=== PATIENT | male | born 1960 | race Caucasian/White ===

== ENCOUNTER 2024-05-14 20:22 | Emergency (ER) | payer MEDICAID ==
[2024-05-14 20:38] VITALS: O2SAT 98
--- NOTE | 2024-05-14 21:00 | ED Physician Documentation ---
PD HPI HEADACHE - Stated complaint Stated Complaint: BLURRED VISION - Chief complaint Chief Complaint: Heent - History obtained from History obtained from: Patient - Additional information Additional information: 63-year-old gentleman with recent diagnosis of prostate cancer status post recent radiation for same. He also has a history of some bowel surgeries and a stable carotid aneurysm. He presents today with 2 weeks of odd headaches. He says it feels like someone is taking a "very sharp knife and then will cut him from the right posterior scalp to the front towards the eye and then sometimes it will happen on the left as well albeit when it happens on the left it is not as bad. He feels like he has blurry vision with this and feels like he is hung over but has not been drinking. He denies jaw claudication. He says ibuprofen has not been very helpful for the headaches but really does not need anything for the headache now. RN did visual acuity which was 20/20 bilaterally. PD PAST MEDICAL HISTORY - Present Medications Home Medications: Ambulatory Orders Medication Instructions Recorded Confirmed Aspirin Chewable [[place] 81 mg PO DAILY 05/14/24 Aspirin] Atorvastatin Calcium 40 mg PO DAILY 05/14/24 Levothyroxine Sodium 0.05 mcg PO DAILY 05/14/24 - Allergies Allergies/Adverse Reactions: Allergies Allergy/AdvReac Type Severity Reaction Status Date / Time No Known Drug Allergies Allergy Verified 05/14/24 20:36 PD ED PE NORMAL - Vitals Vital signs reviewed: Yes - General General: Alert and oriented X 3, No acute distress - HEENT HEENT: PERRL, EOMI, Other (No temporal tenderness) - Neck Neck: Supple, no meningeal sign, No bony TTP - Cardiac Cardiac: RRR, No murmur - Respiratory Respiratory: No respiratory distress, Clear bilaterally - Abdomen Abdomen: Non tender - Neuro Neuro: Alert and oriented X 3, cooler deliverer 2-12 intact, No motor deficit, No sensory deficit, Normal speech, Other (Normal gait) Eye Opening: Spontaneous Motor: Obeys Commands Verbal: Oriented GCS Score: 15 - Psych Psych: Normal mood, Normal affect Results - Vitals Vitals: Vital Signs - 24 hr 05/14/24 05/14/24 05/14/24 20:25 20:54 22:34 Temperature 36.9 C Heart Rate 79 80 68 Respiratory 16 16 Rate Blood Pressure 161/72 H 138/70 H O2 Saturation 98 98 Oxygen O2 Source Room air - EKG (time done) 2208 EKG releavant findings:: EKG personally interpreted by author of this note. Relevant findings are: Rate: Rate (enter#) (63) Rhythm: NSR (w pacs) [place]: Normal Intervals: Normal ND, RBBB (incomplete) Ischemia: Normal ST segments - Labs Labs: Laboratory Tests 05/14/24 05/14/24 05/14/24 21:08 21:08 21:08 WBC 6.4 RBC 4.22 L Hgb 13.1 L Hct 38.3 L MCV 90.8 MCH 31.0 MCHC 34.2 RDW 12.5 Plt Count 192 MPV 8.8 Neut # (Auto) 4.4 Lymph # (Auto) 1.6 [place] # (Auto) 0.4 Eos # (Auto) 0.0 Baso # (Auto) 0.0 Absolute Nucleated RBC 0.00 Nucleated RBC % 0.0 ESR 8 Sodium 135 Potassium 4.1 Chloride 102 Carbon Dioxide 27 Anion Gap 6.0 BUN 14 Creatinine 0.9 Estimated GFR (MDRD) 85 L Glucose 119 H Calcium 9.7 Total Bilirubin 0.7 AST 30 ALT 55 Alkaline Phosphatase 88 C-Reactive Protein < 0.5 Total Protein 7.1 Albumin 4.6 Globulin 2.5 Albumin/Globulin Ratio 1.8 - Rads (name of study) CT of the head and angiography of the head and neck were unremarkable. Relevant Findings:: Final report received, EMP independent interpretation of test PD Medical Decision Making - ED course ED course: 63yo male with 2ish weeks atypical waxing/waning headache with other odd sx. Has hx cerebral aneurysm but not present on CTA head tonight. Ddx includes temporal arteritis, but ESR/CRP neg. Has PACs on EKG with dizzyness, might be related, but should not cause DAN. Departure - Departure Disposition: 01 Home, Self Care Clinical Impression: Headache Qualifiers: Headache type: unspecified Headache chronicity pattern: acute headache Intractability: not intractable Qualified Code(s): R51.9 - Headache, unspecified Condition: Good Record reviewed to determine appropriate education?: Yes Instructions: ED Cephalgia Unspecified Comments: You were seen today for these very odd symptoms, 1 thing we considered with something called giant cell arteritis given the location of your pain but the screening labs for that (ESR and CRP) were negative. We are also worried about your history of aneurysm, but the radiologist did not see any significant aneurysmal changes or any other changes concerning with your brain tonight. At this point seems unlikely to be anything serious, that said do follow-up with your primary care physician with consideration for follow-up MRI and/or referral to neurology especially if they keep going. Return for new or worsening symptoms. On your EKG, you did have some early beats known as premature atrial contractions. These are generally benign but are associated with atrial fibrillation. Recommend he also follow-up with your doctor with consideration for a heart monitor for more prolonged monitoring to make sure that you are not having other arrhythmias as well. Forms: PCP List Discharge Date/Time: 05/14/24 22:34
[2024-05-14] MEDS ORDERED: iohexoL-300 100 ML VIAL ONE (21:04)
[2024-05-14 21:16] LABS: BASOPHILS % (AUTO) 0.3 %; EOSINOPHILS % (AUTO) 0.3 %; HCT - HEMATOCRIT 38.3 % (42.0-52.0); HGB - HEMOGLOBIN 13.1 g/dL (14.0-18.0); LYMPHOCYTES # (AUTO) 1.6 10^3/uL (1.5-3.5); LYMPHOCYTES % (AUTO) 24.8 %; MEAN CORPUSCULAR HGB CONC 34.2 g/dL (32.0-36.0); MEAN CORPUSCULAR VOLUME 90.8 fL (80.0-94.0); MEAN PLATELET VOLUME 8.8 fL (7.4-11.4); MONOCYTES # (AUTO) 0.4 10^3/uL (0.0-1.0); MONOCYTES % (AUTO) 5.8 %; NEUTROPHILS # (AUTO) 4.4 10^3/uL (1.5-6.6); NEUTROPHILS % (AUTO) 68.5 %; PLT - PLATELET COUNT 192 10^3/uL (130-450); RED BLOOD COUNT 4.22 10^6/uL (4.70-6.10); RED CELL DISTRIBUTION WIDTH 12.5 % (12.0-15.0); WHITE BLOOD COUNT 6.4 x10^3/uL (4.8-10.8)
[2024-05-14 21:26] LABS: ALBUMIN 4.6 g/dL (3.2-5.5); ALBUMIN/GLOBULIN RATIO 1.8 (1.0-2.2); ALKALINE PHOSPHATASE 88 IU/L (42-121); ALT ALANINE AMINOTRANSFERASE 55 IU/L (10-60); AST ASPARTATE AMINOTRANSFERASE 30 IU/L (10-42); BILIRUBIN,TOTAL 0.7 mg/dL (0.2-1.0); BUN - BLOOD UREA NITROGEN 14 mg/dL (6-20); CALCIUM 9.7 mg/dL (8.5-10.3); CARBON DIOXIDE - CO2 27 mmol/L (21-32); CHLORIDE 102 mmol/L (101-111); CREATININE 0.9 mg/dL (0.6-1.3); CRP - C-REACTIVE PROTEIN < 0.5 mg/dL (<0.5); GFR - MDRD 85 (>89); GLUCOSE 119 mg/dL (74-104); POTASSIUM 4.1 mmol/L (3.5-4.5); SODIUM 135 mmol/L (135-145); TOTAL PROTEIN 7.1 g/dL (6.4-8.9)
[2024-05-14] MEDS: iohexoL-300 100 ML VIAL IV ONE (21:42)
--- NOTE | 2024-05-14 21:51 | CT Report ---
PROCEDURE: Head WO INDICATIONS: headache, hx aneurysm TECHNIQUE: Noncontrast 4.5 mm thick angled axial sections acquired from the foramen magnum to the vertex. For r adiation dose reduction, the following was used: automated exposure control, adjustment of mA and/or kV according to patient size. COMPARISON: CTA head and neck 05/14/2024. FINDINGS: Image quality: Excellent. CSF spaces: Basal cisterns are patent. No extra-axial fluid collections. Ventricles are normal in size and shape. Brain: No midline shift. No intracranial masses or hemorrhage. [place]-white matter interface is norm al. Skull and face: Calvarium and visualized facial bones are intact, without suspicious lesions. Sinuses: Visualized sinuses and mastoids are clear. IMPRESSION: No acute intracranial pathology. Reviewed by: Neha Chand MD on 05/14/2024 9:50 PM PDT Approved by: Neha Chand MD on 05/14/2024 9:50 PM PDT Station ID: [id number]
--- NOTE | 2024-05-14 21:53 | CT Report ---
PROCEDURE: Angio Head/Neck INDICATIONS: headache, hx aneurysm TECHNIQUE: After the administration of intravenous contrast, 1 mm thick sections acquired from the aortic arch t hrough the [place]. 3-dimensional uajlmtj-gipuvfels-qngkaxvfsz (MIP) and/or volume renderin g reformats were acquired of the central intracranial vasculature and neck separately. For radiation dose reduction, the following was used: automated exposure control, adjustment of mA and/or kV acco rding to patient size. CONTRAST: Omni 300, 80mls COMPARISON: CT head 05/14/2024 FINDINGS: Image quality: Diagnostic. HEAD CT: See separately dictated CT head report of 05/14/2024. HEAD CT ANGIOGRAPHY: Anterior circulation: Intracranial internal carotid arteries are normal in size and flow. The flow within the paired anterior cerebral arteries is normal and symmetric. The flow within the middle cer ebral arteries is normal and symmetric. The anterior communicating artery is seen. No aneurysms are seen. Posterior circulation: Mild left vertebral artery dominance. Visualized portions of the vertebral ar teries demonstrate normal caliber, and join to form a normal appearing basilar artery. Flow within t he posterior cerebral arteries is normal and symmetric. No aneurysms are seen. NECK CT ANGIOGRAPHY: Carotid system: The great vessels demonstrate a conventional anatomy as they arise from the aortic a rch. The origins of the common carotid arteries appear patent. The common carotid arteries demonstr ate normal caliber and courses. The bifurcation regions are both widely patent. The internal caroti d arteries demonstrate normal calibers and courses. Posterior circulation: The origins of the vertebral arteries both appear widely patent. The more flynn perior extracranial portions of both vertebral arteries also demonstrate normal courses and calibers. They join to form a normal appearing basilar artery. Soft tissues: Visualized neck soft tissues demonstrate no suspicious abnormalities. Bones: No suspicious bony lesions. Visualized cervical spine appears normally aligned. IMPRESSION: No significant intracranial arterial abnormality is seen. No significant abnormality is seen within the arteries of the neck. The estimate of stenosis included in the report of the imaging study was calculated using the NASCET method Reviewed by: Neha Chand MD on 05/14/2024 9:52 PM PDT Approved by: Neha Chand MD on 05/14/2024 9:52 PM PDT Station ID: [id number]
[2024-05-14 22:37] VITALS: BP 138/70
== END 2024-05-14 22:34 | disposition home or self-care (01) ==
LOC: ED 20:22
DX: R51.9 Headache, unspecified (principal); C61 Malignant neoplasm of prostate; Z92.3 Personal history of irradiation; I49.1 Atrial premature depolarization
CPT/HCPCS: 36415; 70450; 70496; 70498; 80053; 85025; 85651; 86140; 93005; 99283; 99284; Q9967